=== PATIENT | male | born 1950 | race Caucasian/White ===

== ENCOUNTER 2019-04-10 05:46 | Emergency (ER) | payer OTHER, MEDICARE ==
[~2019-04-10] VITALS: Ht 175.3 cm; Wt 76.4 kg
[2019-04-10 05:49] VITALS: Ht 175.3 cm; Wt 76.4 kg
[2019-04-10 06:30] LABS: BASOPHILS 0.2 % (0-2); EOSINOPHILS 1.2 % (0-7); HEMATOCRIT 34.3 % (42.0-54.0); HEMOGLOBIN 12.1 g/dL (13.5-17.5); IMMATURE GRANULOCYTES 0.2 % (0-5); LYMPHOCYTES 15.5 % (15-50); MCH 31.4 pg (26.0-34.0); MCHC 35.3 g/dL (31.0-37.0); MCV 89.1 fL (80.0-100.0); MEAN PLATELET VOLUME 10.7 fL (7.4-10.4); MONOCYTES 7.4 % (2-11); NEUTROPHILS 75.5 % (40-80); PLATELET COUNT 193 10x3/uL (130-400); RBC 3.85 10x6/uL (4.20-6.10); RDW 13.2 % (11.5-14.5)
[2019-04-10 06:43] LABS: APTT 32.5 SECONDS (22.8-39.4); INR 1.1 (0.85-1.17); PROTIME 13.7 SECONDS (11.6-15.0)
[2019-04-10 06:51] LABS: ALBUMIN 3.9 g/dL (3.4-5.0); ALKALINE PHOSPHATASE 66 U/L (46-116); ALT (SGPT) 22 U/L (10-68); BILIRUBIN - TOTAL 0.42 mg/dL (0.2-1.3); CALC OSMOLALITY 271 mosm/kg (275-300); CALCIUM 9.2 mg/dL (8.5-10.1); CARBON DIOXIDE 23.9 mmol/L (21.0-32.0); CHLORIDE - SERUM 99 mmol/L (98-107); CREATININE - SERUM 1.7 mg/dL (0.6-1.3); GLUCOSE 136 mg/dL (74-106); PROTEIN - SERUM 7.1 g/dL (6.4-8.2); SODIUM 132 mmol/L (136-145); UREA NITROGEN 27 mg/dL (7-18); eGFR NON AFRICAN AMERICAN 43 mL/min (90-120)
[2019-04-10 07:02] LABS: CKMB 1.6 U/L (0.0-3.6); CREATINE KINASE 444 UL (21-232); MAGNESIUM - SERUM 1.9 mg/dL (1.8-2.4); TROPONIN-I < 0.017 ng/mL (0.000-0.060)
[2019-04-10 10:12] VITALS: BP 138/68
== END 2019-04-10 10:13 | disposition home or self-care (01) ==
LOC: D.ER 05:46
PROVIDERS: Emergency Medicine
DX: R07.89 Other chest pain (principal); D64.9 Anemia, unspecified; E86.0 Dehydration; R09.1 Pleurisy; N28.9 Disorder of kidney and ureter, unspecified